=== PATIENT | male | born 1970 | race Caucasian/White ===

== ENCOUNTER 2016-08-28 17:51 | Emergency (ER) | payer BC ==
[2016-08-28 18:37] VITALS: BP 141/78
--- NOTE | 2016-08-28 18:48 | UC ---
Skin Complaint HPI - HPI Summary HPI Summary: Patient has a tick in his upper right back that probably attached during a hike on friday - History of Current Complaint Chief Complaint: UCSkin Time Seen by Provider: 08/28/16 18:42 Stated Complaint: TICK ON BACK Hx Obtained From: Patient Onset/Duration: Sudden Onset, Lasting Days Skin Exposure Onset/Duration: Days Ago Timing: Constant Onset Severity: Mild Current Severity: Mild Location: Discrete Character: Pruritus, Raised Aggravating: Nothing Alleviating: Nothing Related History: Insect Bite/Sting - Allergy/Home Medications Allergies/Adverse Reactions: Allergies Allergy/AdvReac Type Severity Reaction Status Date / Time Meperidine [From Demerol HCl] Allergy Severe convulsions Verified 08/28/16 18:37 Review of Systems Constitutional: Negative Skin: Other - tick Eyes: Negative ENT: Negative Respiratory: Negative Cardiovascular: Negative Gastrointestinal: Negative Genitourinary: Negative Motor: Negative Neurovascular: Negative Musculoskeletal: Negative Neurological: Negative Psychological: Negative All Other Systems Reviewed And Are Negative: Yes PMH/Surg Hx/FS Hx/Imm Hx Previously Healthy: Yes Endocrine History Of: Denies: Diabetes Respiratory History Of: Reports: Asthma - exercise induced - Surgical History Surgical History: Yes Surgery Procedure, Year, and Place: deviated septum surgery. wisdom teeth extraction. left foot surgery. VASECTOMY. Gall bladder - Family History Known Family History: Negative: Cardiac Disease - Social History Alcohol Use: Rare Substance Use Type: None Smoking Status (MU): Never Smoked Tobacco - Immunization History Most Recent Tetanus Shot: 10/09/2012 Physical Exam Triage Information Reviewed: Yes Appearance: Well-Appearing, Well-Nourished, Pain Distress Vital Signs: Initial Vital Signs Temp 98.5 F 08/28/16 18:33 Pulse 61 08/28/16 18:33 Resp 17 08/28/16 18:33 BP 141/78 08/28/16 18:33 Pulse Ox 100 08/28/16 18:33 Vital Signs Reviewed: Yes Eye Exam: Normal Eyes: Positive: Conjunctiva Clear ENT Exam: Normal ENT: Positive: Normal ENT inspection, Hearing grossly normal, Pharynx normal, TMs normal Dental Exam: Normal Neck exam: Normal Neck: Positive: Supple, Nontender, No Lymphadenopathy Respiratory Exam: Normal Respiratory: Positive: Chest non-tender, Lungs clear, Normal breath sounds Cardiovascular Exam: Normal Cardiovascular: Positive: RRR, No Murmur, Pulses Normal Abdominal Exam: Normal Abdomen Description: Positive: Nontender, No Organomegaly, Soft Bowel Sounds: Positive: Present Musculoskeletal Exam: Normal Musculoskeletal: Positive: Strength Intact, ROM Intact, No Edema Neurological Exam: Normal Neurological: Positive: Alert, Muscle Tone Normal Psychological Exam: Normal Skin: Positive: Other - engorged tick in upper right back Course/Dx - Course Course Of Treatment: hx obtained, exam performed, meds reveiwed tick removed, one time dose of abx prescribed. - Differential Diagnoses - Skin Complaint Differential Diagnoses: Tick Born Illness - Diagnoses Provider Diagnoses: tick bite Discharge - Discharge Plan Condition: Stable Disposition: HOME Prescriptions: DOXYcycline CAP(*) [DOXYcycline 100MG CAP(*)] 200 mg PO DAILY #2 cap Patient Education Materials: Tick Bite (ED) Additional Instructions: take the dose of antibiotic with your next meal. Monitor for signs of lyme disease and follow up if needed.
== END 2016-08-28 18:54 | disposition home or self-care (01) ==
LOC: UCCORT 17:51
DX: S20.461A Insect bite (nonvenomous) of right back wall of thorax, initial encounter (principal); W57.XXXA Bitten or stung by nonvenomous insect and other nonvenomous arthropods, initial encounter; Y93.01 Activity, walking, marching and hiking; Y92.9 Unspecified place or not applicable; Z88.5 Allergy status to narcotic agent; Z90.49 Acquired absence of other specified parts of digestive tract
CPT/HCPCS: 99212; G0463

== ENCOUNTER 2018-01-25 08:16 | Emergency (ER) | payer BC ==
[2018-01-25 08:32] VITALS: BP 119/78
--- NOTE | 2018-01-25 10:39 | UC ---
Throat Pain/Nasal Yg HPI - HPI Summary HPI Summary: [address], PAIN WITH SWALLOWING AND LEFT FACIAL/EAR PAIN. FEVER TMAX 102. NO RESPIRATORY COMPROMISE. - History of Current Complaint Chief Complaint: UCGeneralIllness Stated Complaint: EAR PAIN, SORE THROAT Time Seen by Provider: 01/25/18 08:49 Hx Obtained From: Patient Onset/Duration: Gradual Onset, Lasting Days, Still Present Severity: Moderate Pain Intensity: 7 Pain Scale Used: 0-10 Numeric Cough: None Associated Signs & Symptoms: Positive: Fever - Allergies/Home Medications Allergies/Adverse Reactions: Allergies Allergy/AdvReac Type Severity Reaction Status Date / Time meperidine [From Demerol] Allergy Convulsions Verified 01/25/18 08:28 strawberry AdvReac Nasal Verified 01/25/18 08:28 Spasms Home Medications: Home Medications Cetirizine* [ZyrTEC 10 MG TAB*] 10 mg PO DAILY 01/25/18 [History Confirmed 01/25] Ibuprofen TAB* [Advil TAB*] 800 mg PO Q8H PRN 01/25/18 [History Confirmed ] Naproxen Sodium [Aleve] 220 mg PO Q12H PRN 01/25/18 [History Confirmed 01/25/18] PMH/Surg Hx/FS Hx/Imm Hx - Additional Past Medical History Additional PMH: ALLERGIES Respiratory History: Asthma - Surgical History Surgical History: Yes Surgery Procedure, Year, and Place: deviated septum surgery. wisdom teeth extraction. left foot surgery. VASECTOMY. Gall bladder - Family History Known Family History: Negative: Cardiac Disease - Social History Alcohol Use: Rare Substance Use Type: None Smoking Status (MU): Never Smoked Tobacco - Immunization History Most Recent Tetanus Shot: 10/09/2012 Review of Systems Constitutional: Fever ENT: Sore Throat, Ear Ache Respiratory: Negative Cardiovascular: Negative Gastrointestinal: Negative All Other Systems Reviewed And Are Negative: Yes Physical Exam Triage Information Reviewed: Yes Appearance: No Pain Distress, Well-Nourished, Ill-Appearing - MILD Vital Signs: Initial Vital Signs Temp 97.8 F 01/25/18 08:26 Pulse 80 01/25/18 08:26 Resp 16 01/25/18 08:26 BP 119/78 01/25/18 08:26 Pulse Ox 99 01/25/18 08:26 Laboratory Tests 01/25/18 08:35 Group A Strep Rapid Negative Vital Signs Reviewed: Yes Eyes: Positive: Conjunctiva Clear ENT: Positive: Hearing grossly normal, Pharyngeal erythema, TMs normal - CERUMEN IRRIGATED BILATERALLY - TMs CLEAR, Tonsillar swelling - LEFT > RIGHT Neck: Positive: Supple, Tenderness @ - SPFL CERVICAL LAD, Enlarged Nodes @ - SPFL CERVICAL LAD Respiratory Exam: Normal Cardiovascular Exam: Normal Abdomen Description: Positive: Soft Musculoskeletal: Positive: No Edema Neurological: Positive: Alert Psychological: Positive: Age Appropriate Behavior Skin: Negative: rashes Throat Pain/Nasal Course/Dx - Differential Dx/Diagnosis Provider Diagnoses: ACUTE TONSILLITIS Discharge - Sign-Out/Discharge Documenting (check all that apply): Patient Departure All imaging exams completed and their final reports reviewed: No Studies - Discharge Plan Condition: Stable Disposition: HOME Prescriptions: Amoxicillin/Clavulanate TAB* [Augmentin TAB 875*] 875 mg PO BID #20 tab Magic Mouth Was-YASIR/MAAL/LIDO* 5 - 10 ml SWISH SWAL QID PRN #150 ml PRN Reason: Sore Throat Patient Education Materials: Cerumen Impaction (ED), Tonsillitis (ED) Referrals: Shyam Tarango MD [Primary Care Provider] - If Needed Additional Instructions: GO TO THE ED WITHOUT FAIL IF YOU DEVELOP WORSENING PAIN, SWELLING, ANY RESPIRATORY COMPROMISE, NAUSEA, WORSENING FEVER OR ANY OTHER CONCERNING SYMPTOMS. YOU MAY HAVE A VIRAL PHARYNGITIS BUT GIVEN YOUR LEVEL OF DISCOMFORT AND TONSILLAR SWELLING WILL GO AHEAD AND TREAT WITH ANTIBIOTICS. TAKE THEM FOR THE FULL COURSE. MAGIC MOUTHWASH NEEDED FOR DISCOMFORT. IBUPROFEN WILL ALSO HELP WITH INFLAMMATION AND PAIN. BOTH YOUR EARS WERE SUCCESSFULLY IRRIGATED TODAY. - Billing Disposition and Condition Condition: STABLE Disposition: Home
== END 2018-01-25 09:14 | disposition home or self-care (01) ==
LOC: UCCORT 08:16
DX: J03.90 Acute tonsillitis, unspecified (principal); Z88.6 Allergy status to analgesic agent
CPT/HCPCS: 87651; 99213; G0463

== ENCOUNTER 2018-01-27 17:36 | Emergency (ER) | payer BC ==
[2018-01-27] MEDS ORDERED: cefTRIAXone VIAL(*) 1,000 MG VIAL IVPB ONE (17:53)
[2018-01-27] MEDS ORDERED: Dexamethasone IV* 4 MG/ML 1 ML (4 MG) IV SLOW PU ONE (17:53)
[2018-01-27] MEDS ORDERED: NS 0.9% 1000 ML* 1,000 ML IV ONE (17:53)
[2018-01-27 17:54] VITALS: BP 132/92
--- NOTE | 2018-01-27 18:02 | UC ---
Throat Pain/Nasal Yg HPI - HPI Summary HPI Summary: 47-year-old otherwise healthy male presents with worsening sore throat over the last several days. He was seen and treated here with antibiotics for presumed bacterial tonsillitis 2 days ago. He is on Augmentin. 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 He has had sweats but no definite fever. He has been taking ibuprofen for this. He is having difficulty in swallowing despite Magic mouthwash. He denies any neck stiffness, vomiting or headache. He does feel pain up into the left ear. - History of Current Complaint Chief Complaint: UCGeneralIllness Stated Complaint: SORE THROAT - RECHECK FROM THURSDAY 01/25 Time Seen by Provider: 01/27/18 17:42 Hx Obtained From: Patient Pain Intensity: 5 - Allergies/Home Medications Allergies/Adverse Reactions: Allergies Allergy/AdvReac Type Severity Reaction Status Date / Time meperidine [From Demerol] Allergy Convulsions Verified 01/27/18 17:54 strawberry AdvReac Nasal Verified 01/27/18 17:54 Spasms PMH/Surg Hx/FS Hx/Imm Hx Previously Healthy: Yes - Surgical History Surgical History: Yes Surgery Procedure, Year, and Place: deviated septum surgery. wisdom teeth extraction. left foot surgery. VASECTOMY. 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 Alcohol Use: Rare Substance Use Type: None Smoking Status (MU): Never Smoked Tobacco - Immunization History Most Recent Tetanus Shot: 10/09/2012 Review of Systems Constitutional: Chills - sweats Skin: Negative ENT: Sore Throat, Ear Ache Respiratory: Negative Cardiovascular: Negative Gastrointestinal: Negative All Other Systems Reviewed And Are Negative: Yes Physical Exam Triage Information Reviewed: Yes Appearance: Other: - uncomfortable but non-toxic Vital Signs: Initial Vital Signs Temp 98.9 F 01/27/18 17:45 Pulse 85 01/27/18 17:45 Resp 18 01/27/18 17:45 BP 132/92 01/27/18 17:45 Pulse Ox 99 01/27/18 17:45 Vital Signs Reviewed: Yes Eye Exam: Normal ENT: Positive: TMs normal, Other - Left tonsillar enlargement without exudate. No shift of midline. Uvular edema. Mild fullness of the peritonsillar area without redness. No trismus. Handle secretions well.. Negative: Nasal congestion Neck: Positive: Supple, Nontender, Other: - Left-sided anterior cervical adenopathy. Respiratory: Positive: Lungs clear Cardiovascular: Positive: RRR Musculoskeletal Exam: Normal Musculoskeletal: Positive: Strength Intact, ROM Intact Neurological: Positive: Alert Skin Exam: Normal Re-Evaluation - Re-Evaluation First Eval Change: Improved - Improving with IV fluids, Rocephin and IV Decadron. Throat Pain/Nasal Course/Dx - Course Course Of Treatment: Patient with likely early peritonsillar abscess but imaging unavailable. He is nontoxic appearing at present. He is already on antibiotics. I will give him some IV fluids, 12 mg of IV Decadron and a dose of IV Rocephin. He has seen ENT in [place] and will follow-up with them promptly. Discussed the case with Dr. Mao who states the patient can be seen in the office tomorrow. He would like the patient switched over to clindamycin. - Differential Dx/Diagnosis Differential Diagnosis/HQI/PQRI: Peritonsillar Abscess, Tonsillitis Provider Diagnoses: Early peritonsillar abscess, L side - Physician Notification/Consults Discussed Patient Care With: Serge Mao - f/u in office tomorrow Discharge - Sign-Out/Discharge Documenting (check all that apply): Patient Departure All imaging exams completed and their final reports reviewed: No Studies - Discharge Plan Condition: Improved Disposition: HOME Prescriptions: Clindamycin Cap(NF) [Clindamycin Cap 300 mg Cap(NF)] 300 mg PO Q6H #30 cap Dexamethasone TAB* [Decadron TAB*] 8 mg PO DAILY #10 tab Patient Education Materials: Peritonsillar Abscess (ED) Referrals: Amari Kiser MD [Medical Doctor] - Additional Instructions: Call first thing in the morning to ENT to be seen in the office tomorrow. Return with difficulty breathing, high fevers, unable to keep down liquids, worse or other concerns as discussed. Discontinue Augmentin. - Billing Disposition and Condition Condition: IMPROVED Disposition: Home - Attestation Statements Document Initiated by Scribe: No
== END 2018-01-27 19:03 | disposition home or self-care (01) ==
LOC: UCCORT 17:36
DX: Z88.5 Allergy status to narcotic agent (principal); J36 Peritonsillar abscess
CPT/HCPCS: 96360; 96365; 96374; 99212; G0463; J0696; J1100

== ENCOUNTER 2018-06-25 17:23 | Emergency (ER) | payer BC ==
--- NOTE | 2018-06-25 17:56 | ED ---
Lower Extremity - HPI Summary HPI Summary: 48 yr old male with the complaint of lateral right foot pain. Onset over the past six weeks. 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 Pain is moderate, and located over the lateral right foot. No specific injury. Pain worse with walking and standing. No STS, no swelling. - History of Current Complaint Chief Complaint: UCLowerExtremity Stated Complaint: RIGHT FOOT PAIN Time Seen by Provider: 06/25/18 17:46 Pain Intensity: 8 - Allergies/Home Medications Allergies/Adverse Reactions: Allergies Allergy/AdvReac Type Severity Reaction Status Date / Time pineapple Allergy Unknown Nausea And Verified 06/25/18 17:32 Vomiting meperidine [From Demerol] Allergy Convulsions Verified 06/25/18 17:32 strawberry AdvReac Nasal Verified 06/25/18 17:32 Spasms Home Medications: Home Medications Levocetirizine Dihydrochloride [Xyzal Allergy 24Hr] 5 mg PO DAILY 06/25/18 [ History Confirmed 06/25/18] PMH/Surg Hx/FS Hx/Imm Hx Endocrine/Hematology History: Denies: Hx Diabetes, Hx Sickle Cell Disease Cardiovascular History: Reports: Hx Hypertension - NOT TREATED Denies: Other Cardiovascular Problems/Disorders Respiratory History: Reports: Hx Asthma GI History: Denies: Other GI Disorders History: Denies: Other Problems/Disorders Musculoskeletal History: Denies: Other Musculoskeletal History Sensory History: Reports: Hx Contacts or Glasses - GLASSES Denies: Hx Hearing Aid Opthamlomology History: Reports: Hx Contacts or Glasses - GLASSES Neurological History: Denies: Other Neuro Impairments/Disorders - Cancer History Hx Chemotherapy: No - Surgical History Surgery Procedure, Year, and Place: deviated septum surgery. wisdom teeth extraction. left foot surgery. VASECTOMY. Gall bladder Hx Anesthesia Reactions: No Infectious Disease History: No Infectious Disease History: Denies: Traveled Outside the [place] in Last 30 Days - Family History Known Family History: Negative: Cardiac Disease - Social History Occupation: Employed Full-time Lives: With Family Alcohol Use: Rare Substance Use Type: Reports: None Smoking Status (MU): Never Smoked Tobacco Review of Systems Constitutional: Negative Positive: Other - foot pain All Other Systems Reviewed And Are Negative: Yes Physical Exam Triage Information Reviewed: Yes Vital Signs On Initial Exam: Initial Vitals Temp Pulse Resp BP Pulse Ox 97.7 F 73 16 160/98 99 06/25/18 17:34 06/25/18 17:34 06/25/18 17:34 06/25/18 17:34 06/25/18 17:34 Vital Signs Reviewed: Yes Appearance: Positive: Well-Appearing, No Pain Distress Skin: Positive: Warm, Skin Color Reflects Adequate Perfusion Head/Face: Positive: Normal Head/Face Inspection Eyes: Positive: EOMI ENT: Positive: Normal ENT inspection Neck: Positive: Nontender Respiratory/Lung Sounds: Positive: Clear to Auscultation, Breath Sounds Present Cardiovascular: Positive: RRR, Pulses are Symmetrical in both Upper and Lower Extremities Abdomen Description: Negative: Distended Musculoskeletal: Positive: Strength/ROM Intact, Other - Right ankle non tender, right foot only tender over the 5th metatarsal. No STS, no bruise, no redness. Neurological: Positive: Sensory/Motor Intact, Alert, Oriented to Person Place, Time, CN Intact II-III Psychiatric: Positive: Normal - Ester Coma Scale Best Eye Response: 4 - Spontaneous Best Motor Response: 6 - Obeys Commands Best Verbal Response: 5 - Oriented Coma Scale Total: 15 Diagnostics - Vital Signs Vital Signs Temp Pulse Resp BP Pulse Ox 06/25/18 17:34 97.7 F 73 16 160/98 99 - Laboratory Lab Statement: Any lab studies that have been ordered have been reviewed, and results considered in the medical decision making process. - Radiology right foot Radiology Interpretation Completed By: ED Physician - NAD Lower Extremity Course/Dx - Course Course Of Treatment: 48 yr old with lateral foot pain. Neg per my reading on xray. Final read pending. The patient is aware that the radiologist will see tomorrow and give final reading. Patient aware that he needs to follow up with ortho to be evaluated for possible stress fracture. - Diagnoses Provider Diagnoses: Foot pain, right, Hypertension Discharge - Sign-Out/Discharge Documenting (check all that apply): Patient Departure All imaging exams completed and their final reports reviewed: No - Discharge Plan Condition: Good Disposition: HOME Patient Education Materials: Foot Sprain (ED), Hypertension (ED) Referrals: Malka Olson MD [Primary Care Provider] - 2 Days Camden Corey MD [Medical Doctor] - 2 Days Additional Instructions: Please see the flight security specialist for further evaluation of your foot. Limit your activity on the foot. The radiologist will give a final reading on your xray tomorrow morning. - Billing Disposition and Condition Condition: GOOD Disposition: Home
[2018-06-25 18:29] VITALS: BP 132/100
== END 2018-06-25 18:35 | disposition home or self-care (01) ==
LOC: UCCORT 17:23
DX: M79.671 Pain in right foot (principal); I10 Essential (primary) hypertension; Z91.018 Allergy to other foods; Z88.8 Allergy status to other drugs, medicaments and biological substances
CPT/HCPCS: 99211; G0463

== ENCOUNTER 2018-08-07 13:07 | Emergency (ER) | payer BC, OTHER ==
[2018-08-07 13:34] VITALS: BP 124/86
[2018-08-07] MEDS ORDERED: Ibuprofen ADULT LIQ* 600 MG/30 ML UDC PO ONE (13:47)
--- NOTE | 2018-08-07 13:49 | UC ---
General HPI - HPI Summary HPI Summary: right thumb forcefully bent during a restraint while at work today. c/o pain to base of the thumb. - History of Current Complaint Chief Complaint: UCUpperExtremity Stated Complaint: RIGHT THUMB INJURY - W/C Time Seen by Provider: 08/07/18 13:42 Hx Obtained From: Patient Onset/Duration: Sudden Onset Timing: Constant Pain Intensity: 8 Aggravating: movement Associated Signs & Symptoms: Positive: Edema - Allergy/Home Medications Allergies/Adverse Reactions: Allergies Allergy/AdvReac Type Severity Reaction Status Date / Time pineapple Allergy Unknown Nausea And Verified 08/07/18 13:31 Vomiting meperidine [From Demerol] Allergy Convulsions Verified 08/07/18 13:31 strawberry AdvReac Nasal Verified 08/07/18 13:31 Spasms PMH/Surg Hx/FS Hx/Imm Hx - Additional Past Medical History Additional PMH: allergies - Surgical History Surgical History: Yes Surgery Procedure, Year, and Place: deviated septum surgery. wisdom teeth extraction. left foot surgery. VASECTOMY. Gall bladder. RIGHT KNEE SCOPE - Family History Known Family History: Positive: Non-Contributory Negative: Cardiac Disease - Social History Occupation: Employed Full-time Alcohol Use: Occasionally Substance Use Type: None Smoking Status (MU): Never Smoked Tobacco - Immunization History Most Recent Tetanus Shot: 10/09/2012 Review of Systems All Other Systems Reviewed And Are Negative: Yes Musculoskeletal: Positive: Arthralgia - r thumb, Edema - r thumb Physical Exam Triage Information Reviewed: Yes Appearance: Well-Appearing Vital Signs: Initial Vital Signs Temp 98.2 F 08/07/18 13:30 Pulse 83 08/07/18 13:30 Resp 19 08/07/18 13:30 BP 124/86 08/07/18 13:30 Pulse Ox 98 08/07/18 13:30 Vital Signs Reviewed: Yes Eyes: Positive: Conjunctiva Clear ENT: Positive: Normal ENT inspection Respiratory: Positive: Lungs clear Cardiovascular: Positive: RRR Abdomen Description: Positive: Nontender Musculoskeletal: Positive: Other: - R hand: mild swelling and very tender to mcp joint R thumb. rom limited by pain. rest of hand unremarkable. thumb has full s/v function, rest of hand has full s/v/m function. wrist is non tender. Neurological: Positive: Alert Psychological: Positive: Age Appropriate Behavior Skin Exam: Normal Diagnostics - Radiology No standard instances Radiology Interpretation Completed By: Radiologist - r thumb=IMPRESSION: NO ACUTE OSSEOUS INJURY. IF SYMPTOMS PERSIST, RECOMMEND REPEAT IMAGING. Re-Evaluation - Re-Evaluation First Eval Re-Evaluation Time: 14:14 Change: Unchanged - joint laxity R MCP post xray. Course/Dx - Course Course Of Treatment: SPLINT APPLIED BY NURSING STAFF. I RECHECK FINGERS AND S/V INTACT AFTER. - Differential Dx - Multi-Symptom Differential Diagnoses: Other - NO FX. HIGH GRAIN LIGAMENT INJURY THUS WILL SPLINT AND REFER TO HAND SPECIALIST. - Diagnoses Provider Diagnosis: Sprain of right thumb Discharge - Sign-Out/Discharge Documenting (check all that apply): Patient Departure All imaging exams completed and their final reports reviewed: Yes - Discharge Plan Condition: Stable Disposition: HOME Patient Education Materials: Skier's Thumb (ED) Forms: *Work Release Referrals: Deepika Cortes MD [Medical Doctor] - As Soon As Possible Additional Instructions: KEEP THE SPLINT ON AT ALL TIMES UNTIL CLEARED BY ORTHOPEDICS. - Billing Disposition and Condition Condition: STABLE Disposition: Home
== END 2018-08-07 14:30 | disposition home or self-care (01) ==
LOC: UCCORT 13:07
DX: S63.601A Unspecified sprain of right thumb, initial encounter (principal); X50.0XXA Overexertion from strenuous movement or load, initial encounter; Y92.9 Unspecified place or not applicable; Y99.0 Civilian activity done for income or pay; Z88.5 Allergy status to narcotic agent; Z91.018 Allergy to other foods
CPT/HCPCS: 99213; A9270-GY; G0463

== ENCOUNTER → 2018-08-20 09:06 | Day surgery (SDC) | payer OTHER ==
[~2018-08-20 09:06] MED LIST: Acetaminophen TAB* 325 MG PO PRN; Buffered Lidocaine 1% SYRIN* 1 ML/SYRINGE INTRADERM ONE; Bupivacaine 0.25% SDV* 30 ML ONE; Dexamethasone IV* 4 MG/ML 1 ML (4 MG) IV SLOW PU ONE; Dexamethasone IV* 4 MG/ML 1 ML (4 MG) ONE; DiMENhydriNATE IV* 50 MG/ML VIAL IV PUSH PRN; Famotidine IV* 10 MG/ML 2 ML (20 mg) IV ONE; Famotidine IV* 10 MG/ML 2 ML (20 mg) ONE; HYDROcodone/ACETAMIN 5-325 MG* 1 TAB ONE; Ketorolac INJ* 30 MG/ML 1 ML VIAL ONE; Lactated Ringers 1000 ML Bag* 1,000 ML IV SCH; Midazolam* 1 MG/ML 5 ML VIAL (5 MG) ONE; Naloxone* 0.4 MG/ML 1 ML VIAL IV PRN; Ondansetron INJ* 2 MG/ML VIAL IV PRN; Ondansetron INJ* 2 MG/ML VIAL ONE; Propofol* 10 MG/ML 20 ML BTL ONE; ceFAZolin 2 GM in NS PREMIX(*) 2 GM/100 ML BAG IVPB ONE; ceFAZolin VIAL(*) VIAL ONE; fentaNYL* 50 MCG/ML 2 ML VIAL (100 MCG VIAL) ONE; oxyCODONE/Acetamin 5/325 MG* TAB PO PRN
[2018-08-20] MEDS: fentaNYL* 50 MCG/ML 2 ML VIAL (100 MCG VIAL) IV PRN ×3 (14:58→15:10)
[2018-08-20 16:28] VITALS: BP 118/71
--- NOTE | 2018-08-20 23:50 | OP ---
DATE OF OPERATION: 08/20/18 - [facility] DATE OF : 72 SURGEON: Samuel Hdz MD. CATTLE DRIVER: FENG García. ANESTHESIOLOGIST: Dr. Jane. ANESTHESIA: General. PRE-OP DIAGNOSIS: Right thumb ulnar collateral ligament full thickness tear with Stener lesion. POST-OP DIAGNOSIS: Right thumb ulnar collateral ligament full thickness tear with Stener lesion. OPERATIVE PROCEDURE: Repair of right thumb metacarpophalangeal joint ulnar collateral ligament Stener lesion. ESTIMATED BLOOD LOSS: 2 mL. COMPLICATIONS: None. FINDINGS: See above and below. DESCRIPTION OF PROCEDURE: Eliel was seen in the preoperative holding area. The correct site, side and procedure were identified. We came back to the operating room where the arm was prepped and draped in the usual fashion and time-out was performed. The arm was exsanguinated with the Esmarch and the tourniquet was inflated to 250 mmHg. I made a lazy-S incision over the ulnar aspect of the right thumb MCP joint. Dissection was carried down and full-thickness flaps were raised off of the adductor aponeurosis. The ligament was developing a lot of scar tissue just proximal to the aponeurosis. This was all debrided back with a [place] blade and the ligament was mobilized. I then made a split in the aponeurosis and exposed the base of the proximal phalanx. The area was cleaned with a rongeur and the [place] blade until I had some bleeding bone. I then placed 2 mini Mitek suture anchors into the footprint of the ulnar collateral ligament. The ulnar collateral ligament was then reduced underneath the aponeurosis and I used each 2-0 Ethibond suture to whipstitch up into the ligament and repaired firmly back down to the bone. I then augmented the repair with a couple of 3-0 Ethibond sutures sewing the ligament back down to the volar plate. I then repaired the aponeurosis with 4-0 Prolene suture. The wound was irrigated out. Skin was closed with 4-0 nylon suture. Marcaine was infiltrated all around the operative area. The wound was dressed with Xeroform , 4x4s, sterile Webril and then a thumb spica splint all the way up to the tip of the thumb was applied protecting the repair. He was then taken to the recovery room in stable condition. [id number]/[facility] #: [id number] MTDD
== END | disposition home or self-care (01) ==
LOC: OREAST 09:06
PROVIDERS: ATTEND Orthopaedic Surgery Hand Surgery
DX: S53.31XA Traumatic rupture of right ulnar collateral ligament, initial encounter (principal); W01.0XXA Fall on same level from slipping, tripping and stumbling without subsequent striking against object, initial encounter; Y93.89 Activity, other specified; Y92.219 Unspecified school as the place of occurrence of the external cause; Y99.0 Civilian activity done for income or pay; I10 Essential (primary) hypertension; Z68.38 Body mass index [BMI] 38.0-38.9, adult; F41.8 Other specified anxiety disorders; M19.90 Unspecified osteoarthritis, unspecified site
CPT/HCPCS: C1713; J0690; J1100; J1885; J2250; J2405; J2704; J3010

== ENCOUNTER 2019-07-04 08:39 | Emergency (ER) | payer BC ==
[2019-07-04 09:35] VITALS: BP 134/92
--- NOTE | 2019-07-04 09:57 | UC ---
Back Pain HPI - HPI Summary HPI Summary: 49 year old male who was seen on 06/24/19 after slipping on ice and landing on his back. Since then he has had right calf pain, swelling and intermittent numbness. Pain varies from 7/10-9/10 depending on activity. No associated pleuritic chest pain nor sob. States low back feels better. - History of Current Complaint Chief Complaint: UCLowerExtremity Stated Complaint: RECHECK 06/24 VISIT, PAIN IN LEGS RATHER THAN BACK Time Seen by Provider: 07/04/19 09:38 Hx Obtained From: Patient Onset/Duration: Gradual Onset - worsening pain on a daily basis Timing: Constant Pain Intensity: 8 Character: Throbbing, Burning Aggravating Factor(s): Movement, Walking Alleviating Factor(s): Nothing Associated Signs And Symptoms: Positive: Swelling, Other - Calf Pain - Allergies/Home Medications Allergies/Adverse Reactions: Allergies Allergy/AdvReac Type Severity Reaction Status Date / Time pineapple Allergy Unknown Nausea And Verified 07/04/19 09:32 Vomiting meperidine [From Demerol] Allergy Convulsions Verified 07/04/19 09:32 strawberry AdvReac Nasal Verified 07/04/19 09:32 Spasms environmental Allergy itching, Uncoded 07/04/19 09:32 watery eyes, congestion PMH/Surg Hx/FS Hx/Imm Hx Previously Healthy: Yes - Surgical History Surgical History: Yes Surgery Procedure, Year, and Place: deviated septum surgery;23 yrs ago, [facility]. wisdom teeth extraction;23 yrs ago. left foot surgery;23 yrs ago. VASECTOMY;. Gall bladder;5 yrs ago [facility]. RIGHT KNEE SCOPE;2011, [facility]. R thumb. - Family History Known Family History: Positive: Non-Contributory Negative: Cardiac Disease - Social History Alcohol Use: Occasionally Alcohol Amount: socially Substance Use Type: None Smoking Status (MU): Never Smoked Tobacco - Immunization History Most Recent Tetanus Shot: 10/09/2012 Review of Systems All Other Systems Reviewed And Are Negative: Yes Constitutional: Positive: Negative Skin: Positive: Negative Eyes: Positive: Negative ENT: Positive: Negative Respiratory: Positive: Negative Cardiovascular: Positive: Negative Gastrointestinal: Positive: Negative Motor: Positive: Decreased ROM - secondary to pain in right calf. Negative: Weakness Musculoskeletal: Positive: Calf Tenderness - posterior mid calf Neurological: Positive: Other - intermittent tingling lateral right calf Is Patient Immunocompromised?: No Physical Exam Triage Information Reviewed: Yes Appearance: Pain Distress - mild, Obese Vital Signs: Initial Vital Signs Temp 98.2 F 07/04/19 09:30 Pulse 95 07/04/19 09:30 Resp 17 07/04/19 09:30 BP 134/92 07/04/19 09:30 Pulse Ox 98 07/04/19 09:30 Eye Exam: Normal ENT Exam: Normal Neck: Positive: Supple, Nontender, No Lymphadenopathy Respiratory: Positive: Chest non-tender, Lungs clear. Negative: Crackles, Rhonchi, Wheezing, Plerual rub Cardiovascular: Positive: RRR, No Murmur Abdomen Description: Positive: Nontender, Soft Musculoskeletal: Positive: Strength Intact, Other: - Right calf 48cm, Left calf 41cm. Right posterior calf very tender to palpation. Neurological Exam: Normal Psychological Exam: Normal Skin Exam: Normal Back Pain Course/Dx - Course Course Of Treatment: Discussed concern of DVT and further evaluation in the ED recommended. He is agreeable and will go to [facility] ED for further evaluation and understands importance of further definitive evaluation. Report was provided to PATRICIA Mayberry at [facility] urgent care. - Differential Dx/Diagnosis Differential Diagnosis/HQI/PQRI: Other - Deep Vein Thrombosis Provider Diagnosis: Right calf pain Discharge ED - Sign-Out/Discharge Documenting (check all that apply): Patient Departure All imaging exams completed and their final reports reviewed: No Studies - Discharge Plan Condition: Stable Disposition: HOME-RECOMMEND TO ED Referrals: Malka Olson MD [Primary Care Provider] - Additional Instructions: Please proceed to [facility] Emergency Department for further evaluation of your right calf pain and swelling. - Billing Disposition and Condition Condition: STABLE Disposition: Home-Recommend to ED
== END 2019-07-04 10:16 | disposition home health service (06) ==
LOC: UCCORT 08:39
DX: M79.661 Pain in right lower leg (principal); W00.0XXD Fall on same level due to ice and snow, subsequent encounter; Z91.018 Allergy to other foods; Z91.09 Other allergy status, other than to drugs and biological substances; Z88.5 Allergy status to narcotic agent
CPT/HCPCS: 99212; G0463

== ENCOUNTER 2019-07-04 12:10 | Emergency (ER) | payer BC ==
--- NOTE | 2019-07-04 14:24 | ED ---
Lower Extremity - HPI Summary HPI Summary: This pt is a 49yo M with a traumatic back injury approximately 2 weeks ago. He states he landed on his R buttock, had pain to the R buttock with radiation of pain to the R hamstring down to the R knee. This pain has improved although he states he has intermittent pains. Pt is now having pain to the R lower extremity - to the calf - which is new since his fall. He also endorses some redness and a "knot" to the area. Pain with ambulation and now having tingling to the R lateral side of the foot when ambulating. this has been intermittent and in conjunction with the R calf pain. Denies any other symptoms or injuries. He denies any back pain. Denies any head pain, headache or LOC. - History of Current Complaint Chief Complaint: EDExtremityLower Stated Complaint: RIGHT CALF PAIN Time Seen by Provider: 07/04/19 14:13 Hx Obtained From: Patient Mechanism Of Injury: Other - trauma Onset of Pain: Post Accident Onset/Duration: Days Severity Initially: Moderate Severity Currently: Moderate Pain Intensity: 5 Pain Scale Used: 0-10 Numeric Timing: Constant Location: Is Discrete @ - right lower extremity pain to the calf Character Of Pain: Aching Associated Signs And Symptoms: Negative: Swelling, Redness, Bruising Aggravating Factor(s): Standing, Ambulation, Movement, Weight Bearing, Stairs Alleviating Factor(s): Rest Able to Bear Weight: Yes - Allergies/Home Medications Allergies/Adverse Reactions: Allergies Allergy/AdvReac Type Severity Reaction Status Date / Time pineapple Allergy Unknown Nausea And Verified 07/04/19 12:16 Vomiting gluten Allergy See Comment Verified 07/04/19 12:16 meperidine [From Demerol] Allergy Convulsions Verified 07/04/19 12:16 strawberry AdvReac Nasal Verified 07/04/19 12:16 Spasms environmental Allergy itching, Uncoded 07/04/19 12:16 watery eyes, congestion PMH/Surg Hx/FS Hx/Imm Hx Previously Healthy: Yes Endocrine/Hematology History: Denies: Hx Diabetes, Hx Sickle Cell Disease Cardiovascular History: Reports: Hx Hypertension - no meds Denies: Hx Pacemaker/ICD, Other Cardiovascular Problems/Disorders Respiratory History: Reports: Hx Asthma - borderline, ok for many years Denies: Other Respiratory Problems/Disorders GI History: Denies: Other GI Disorders History: Denies: Hx Renal Disease, Other Problems/Disorders Musculoskeletal History: Reports: Hx Arthritis - low back and hips Denies: Other Musculoskeletal History Sensory History: Reports: Hx Contacts or Glasses - contacts and glasses Denies: Hx Hearing Aid Opthamlomology History: Reports: Hx Contacts or Glasses - contacts and glasses Neurological History: Denies: Other Neuro Impairments/Disorders Psychiatric History: Denies: Hx Panic Disorder - Cancer History Hx Chemotherapy: No - Surgical History Surgery Procedure, Year, and Place: deviated septum surgery;23 yrs ago, [place]. wisdom teeth extraction;23 yrs ago. left foot surgery;23 yrs ago. VASECTOMY;. Gall bladder;5 yrs ago [facility]. RIGHT KNEE SCOPE;2011, [facility]. R thumb. Hx Anesthesia Reactions: No - Immunization History Hx Pertussis Vaccination: No Immunizations Up to Date: Yes Infectious Disease History: No Infectious Disease History: Denies: Traveled Outside the [place] in Last 30 Days - Family History Known Family History: Positive: Non-Contributory Negative: Cardiac Disease - Social History Occupation: Employed Full-time Lives: With Family Alcohol Use: Occasionally Alcohol Amount: socially Hx Substance Use: No Substance Use Type: Reports: None Hx Tobacco Use: No Smoking Status (MU): Never Smoked Tobacco Review of Systems Negative: Fever, Chills, Fatigue, Skin Diaphoresis Negative: Palpitations, Chest Pain Negative: Shortness Of Breath, Cough Genitourinary: Negative Positive: no symptoms reported, see HPI Positive: Other - pain to the lower R calf . Negative: Arthralgia, Myalgia Negative: Rash, Bruising Neurological: Negative All Other Systems Reviewed And Are Negative: Yes Physical Exam Triage Information Reviewed: Yes Vital Signs On Initial Exam: Initial Vitals Temp Pulse Resp BP Pulse Ox 98.5 F 113 19 131/106 97 07/04/19 12:14 07/04/19 12:14 07/04/19 12:14 07/04/19 12:14 07/04/19 12:14 Vital Signs Reviewed: Yes Appearance: Positive: Well-Appearing, Well-Nourished Skin: Positive: Warm, Skin Color Reflects Adequate Perfusion, Other - no noted erythema to the R lower extremity - but this was noted by UC Head/Face: Positive: Normal Head/Face Inspection Eyes: Positive: EOMI, EDI, Conjunctiva Clear Neck: Positive: Supple, Nontender, No Lymphadenopathy Respiratory/Lung Sounds: Positive: Clear to Auscultation, Breath Sounds Present Cardiovascular: Positive: RRR, Pulses are Symmetrical in both Upper and Lower Extremities Musculoskeletal: Positive: Normal, Strength/ROM Intact, Pain @ - right lower ext Neurological: Positive: Speech Normal Psychiatric: Positive: Normal, Affect/Mood Appropriate AVPU Assessment: Alert Procedures - Sedation Patient Received Moderate/Deep Sedation with Procedure: No Diagnostics - Vital Signs Vital Signs Temp Pulse Resp BP Pulse Ox 07/04/19 14:02 99.8 F 93 16 142/89 94 07/04/19 12:14 98.5 F 113 19 131/106 97 - Laboratory Lab Statement: Any lab studies that have been ordered have been reviewed, and results considered in the medical decision making process. Lower Extremity Course/Dx - Course Course Of Treatment: Patient has pain on palpation of the right calf. He endorses a knot to the right calf area, however this was not palpated by provider. There does not appear to be any erythema suggestive of a cellulitis and no palpable cord present. Likely strain, however US obtained. This shows right gastrocnemius vein thrombosis without extension to or above the popliteal vein. Patient was prescribed Xarelto twice daily until follow-up with PCP. There are no obvious contraindications to Xarelto patient has no prior kidney disease or dysfunction. I also have recommended follow up with ortho and or PT and PCP for furhter evaluation of his pain since the fall. Pt continues to ambulate well. - Diagnoses Differential Diagnosis/HQI/PQRI: Positive: Sprain, Strain Provider Diagnoses: DVT (deep venous thrombosis) Discharge ED - Sign-Out/Discharge Documenting (check all that apply): Patient Departure - Discharge Plan Condition: Stable Disposition: HOME Prescriptions: Rivaroxaban TAB(*) [Xarelto 15 mg(*)] 15 mg PO BID #41 tab MDD 2 Patient Education Materials: Rivaroxaban (By mouth), Deep Vein Thrombosis (ED) Referrals: Malka Olson MD [Primary Care Provider] - Additional Instructions: Please follow up with your PCP within the next few weeks Xarelto has been prescribed to you Twice daily Please use extra precautions for falls and other trauma as you are at a higher risk of bleeding - Billing Disposition and Condition Condition: STABLE Disposition: Home
[2019-07-04 15:26] VITALS: BP 138/102
== END 2019-07-04 15:26 | disposition home or self-care (01) ==
LOC: ED 12:10
DX: I82.461 Acute embolism and thrombosis of right calf muscular vein (principal); I10 Essential (primary) hypertension; Z88.5 Allergy status to narcotic agent; Z91.018 Allergy to other foods; Z91.09 Other allergy status, other than to drugs and biological substances
CPT/HCPCS: 99282